=== PATIENT | female | born 1960 | race Caucasian/White ===

== ENCOUNTER 2017-11-16 21:13 | Emergency (ER) | payer OTHER ==
--- NOTE | 2017-11-16 21:55 | RAD ---
INDICATION: Left knee injury. TECHNIQUE: 4 views of the left knee were obtained. FINDINGS: The bones are in normal alignment. No joint effusion or fracture is seen. Joint spaces appear maintained. IMPRESSION: NO EVIDENCE FOR FRACTURE.
--- NOTE | 2017-11-16 22:31 | ED ---
Lower Extremity - HPI Summary HPI Summary: Complains of mechanical fall onto left knee while at work. Patient ambulatory. Denies any other injury. - History of Current Complaint Chief Complaint: EDExtremityLower Stated Complaint: LT KNEE INJURY Time Seen by Provider: 11/16/17 21:28 Hx Obtained From: Patient Mechanism Of Injury: Fall From A Standing Position Onset of Pain: Immediate Severity Initially: Mild Severity Currently: Moderate Pain Intensity: 6 Pain Scale Used: 0-10 Numeric Timing: Constant Location: Is Discrete @ Character Of Pain: Aching Associated Signs And Symptoms: Positive: Knee Pain Aggravating Factor(s): Ambulation, Weight Bearing Alleviating Factor(s): Rest - Allergies/Home Medications Allergies/Adverse Reactions: Allergies Allergy/AdvReac Type Severity Reaction Status Date / Time No Known Allergies Allergy Verified 11/16/17 21:18 Home Medications: Home Medications Levothyroxine Sodium 50 mcg PO DAILY 11/16/17 [History Confirmed 11/16/17] cycloSPORINE [Restasis Multidose] 0.05 ml BOTH EYES BID 11/16/17 [History Confirmed 11/16/17] PMH/Surg Hx/FS Hx/Imm Hx Endocrine/Hematology History: Denies: Hx Diabetes Cardiovascular History: Denies: Hx Congestive Heart Failure, Hx Hypertension, Hx Pacemaker/ICD GI History: Reports: Other GI Disorders - Cystitis History: Reports: Hx Kidney Stones - HX OF FEW YEARS AGO Denies: Hx Renal Disease Musculoskeletal History: Reports: Hx Back Problems, Other Musculoskeletal History - Bone Spurs. Denies: Hx Bursitis, Hx Tendonitis Sensory History: Reports: Hx Contacts or Glasses - READING GLASSES Denies: Hx Hearing Aid Opthamlomology History: Reports: Hx Contacts or Glasses - READING GLASSES Neurological History: Reports: Other Neuro Impairments/Disorders - PAIN CLINIC PT Psychiatric History: Reports: Hx Anxiety - WITH CERTAIN MEDICAL PROCEDURE, NO MEDS Denies: Hx Panic Disorder - Surgical History Surgery Procedure, Year, and Place: 2009 APPENDECTOMY, [facility] Hx Anesthesia Reactions: Yes - VERY EMOTIONAL WHEN COMING OUT, TAKES A WHILE COMING OUT Infectious Disease History: No Infectious Disease History: Denies: Traveled Outside the [place] in Last 30 Days - Social History Alcohol Use: Occasionally Substance Use Type: Reports: None Smoking Status (MU): Never Smoked Tobacco Do You Chew or Dip Tobacco: No Review of Systems Constitutional: Negative Eyes: Negative ENT: Negative Cardiovascular: Negative Respiratory: Negative Gastrointestinal: Negative Genitourinary: Negative Positive: Other Neurological: Negative Psychological: Normal All Other Systems Reviewed And Are Negative: Yes Physical Exam - Summary Physical Exam Summary: No erythema, deformity, swelling, ecchymosis, extra warmth to left knee joint. Mildly tender to palpation. Full range of motion involving flexion and extension with minimal pain. PMS intact distally. No pain at ankle or foot. Triage Information Reviewed: Yes Vital Signs On Initial Exam: Initial Vitals Temp Pulse Resp BP Pulse Ox 98.6 F 75 18 146/98 97 11/16/17 21:17 11/16/17 21:17 11/16/17 21:17 11/16/17 21:17 11/16/17 21:17 Vital Signs Reviewed: Yes Appearance: Positive: Well-Appearing Skin: Positive: Warm Head/Face: Positive: Normal Head/Face Inspection Eyes: Positive: Normal Neck: Positive: Supple Respiratory/Lung Sounds: Positive: Clear to Auscultation Cardiovascular: Positive: Normal Abdomen Description: Positive: Nontender Musculoskeletal: Positive: Normal Neurological: Positive: Normal Psychiatric: Positive: Normal AVPU Assessment: Alert - Electra Coma Scale Best Eye Response: 4 - Spontaneous Best Motor Response: 6 - Obeys Commands Best Verbal Response: 5 - Oriented Coma Scale Total: 15 Diagnostics - Vital Signs Vital Signs Temp Pulse Resp BP Pulse Ox 11/16/17 21:17 98.6 F 75 18 146/98 97 - Laboratory Lab Statement: Any lab studies that have been ordered have been reviewed, and results considered in the medical decision making process. - Radiology knee Xray Interpretation: No Acute Changes Radiology Interpretation Completed By: Radiologist Re-Evaluation - Re-Evaluation 1 Re-Evaluation Time: 22:31 Comment: Patient refused pain medication. Lower Extremity Course/Dx - Course Course Of Treatment: Complains of mechanical fall onto left knee while at work. Patient ambulatory. Denies any other injury. PE: No erythema, deformity, swelling, ecchymosis, extra warmth to left knee joint. Mildly tender to palpation. Full range of motion involving flexion and extension with minimal pain. PMS intact distally. No pain at ankle or foot. W/UP: Imaging negative. - Diagnoses Provider Diagnoses: Fall Discharge - Sign-Out/Discharge Documenting (check all that apply): Discharge/Admit/Transfer - Discharge Plan Condition: Stable Disposition: HOME Patient Education Materials: Knee Pain (ED) Referrals: Lori Hernandez MD [Primary Care Provider] - Additional Instructions: Follow-up with primary care. Return to the ED for any new or worsening symptoms - Billing Disposition and Condition Condition: STABLE Disposition: Home
[2017-11-16 23:11] VITALS: BP 124/81
== END 2017-11-16 23:12 | disposition home or self-care (01) ==
LOC: ED 21:13
DX: M25.562 Pain in left knee (principal); Z91.81 History of falling
CPT/HCPCS: 99282